=== PATIENT | female | born 1965 | race Caucasian/White ===

== ENCOUNTER 2024-06-06 15:18 | Emergency (ER) | payer BC ==
[~2024-06-06] VITALS: Ht 165.1 cm; Wt 72.6 kg
[2024-06-06 15:25] VITALS: BP 142/87; TEMP 36.8; O2SAT 98
[2024-06-06 15:26] VITALS: PULSE 94; RESP 16; O2SAT 98
== END 2024-06-06 15:55 | disposition home or self-care (01) ==
LOC: ER 15:18
DX: R45.851 Suicidal ideations (principal); Z53.21 Procedure and treatment not carried out due to patient leaving prior to being seen by health care provider